=== PATIENT | male | born 1955 ===

== ENCOUNTER 2019-11-16 19:17 | Inpatient (IN) | payer OTHER ==
[2019-11-16 20:10] LABS: BASO % 0.5 % (0-2.0); EOS % 1.5 % (0-4.5); HEMATOCRIT 35.6 % (35.4-49); HEMOGLOBIN 12.1 GM/dl (11.7-16.9); LYMPH % 36.6 % (8-40); MCH 29.5 pg (25.7-33.7); MCHC 33.9 g/dl (32.0-35.9); MEAN PLT VOLUME 8.4 fl (7.5-11.1); NEUT % 51.4 % (42.8-82.8); PLATELET COUNT 275 K/MM3 (134-434); RBC 4.09 M/mm3 (4.00-5.60); RDW 12.7 % (11.9-15.9); WHITE BLOOD COUNT 6.8 K/mm3 (4.0-10.8)
[2019-11-16 20:18] LABS: ALBUMIN 3.8 g/dl (3.4-5.0); BILIRUBIN,TOTAL 0.4 mg/dl (0.2-1); CALCIUM 9.2 mg/dl (8.5-10); CREATININE 0.8 mg/dl (0.55-1.3); POTASSIUM 4.5 mmol/L (3.5-5.1); TOT PROT 7.1 g/dl (6.4-8.2)
[2019-11-16] MEDS ORDERED: SODIUM CHLORIDE 1,000 ML IV ONE (21:20)
--- NOTE | 2019-11-16 21:23 | PDOC ---
Documentation entered by Shaheen Pendleton SCRIBE, acting as scribe for Chaz Ovalle MD. Chaz Ovalle MD: This documentation has been prepared by the Helder seth Angel, SCRIBE, under my direction and personally reviewed by me in its entirety. I confirm that the documentation accurately reflects all work, treatment, procedures, and medical decision making performed by me. History of Present Illness - General Chief Complaint: Abnormal Lab Results (Outside) Stated Complaint: SENT FOR LOW NA Time Seen by Provider: 11/16/19 19:20 History Source: Patient, Family (Daughter in law) Exam Limitations: No Limitations - History of Present Illness Initial Comments: 11/16/19 20:14 The patient is a 64 year old male who comes in with chest pain for the past 5 days. The patient went to a clinic at [facility] for evaluation and found that he has a low sodium of 120. The patient has no chest pain here in the ED. The patient denies abdominal pain or any other complaints here in the ED. 11/16/19 21:22 Assessment and plan: This is a 64-year-old male who was sent in for evaluation and probable admission for hyponatremia. Patient said his sodium was 120 Labs were done here and sodium came back 127. Patient will be admitted for hyponatremia Past History - Medical History Allergies/Adverse Reactions: Allergies Allergy/AdvReac Type Severity Reaction Status Date / Time No Known Allergies Allergy Unverified 11/16/19 19:18 Home Medications: Ambulatory Orders Aspirin [Ecotrin] 81 mg PO DAILY 11/16/19 Atorvastatin Ca [Lipitor] 20 mg PO HS 11/16/19 Insulin Detemir [Levemir Flextouch] 1 dose SQ ASDIR 11/16/19 Metformin HCl [Glucophage] 1,000 mg PO BID 11/16/19 Review of Systems - Review of Systems Able to Perform ROS?: Yes Comments:: 11/16/19 20:14 General: No fevers or chills, no weakness, no weight loss HEENT: No change in vision. No sore throat. No ear pain CardioVascular: No chest pain or shortness of breath Respiratory:No cough, or wheezing. Gastrointestinal: no nausea, vomiting, diarrhea or constipation, No rectal bleeding Genitourinary: No dysuria, hematuria, or frequency Musculoskeletal: No joint or muscle pain or swelling Neurologic: No headache, vertigo, dizziness or loss of consciousness Psychiatric: nor depression Skin: No rashes or easy bruising Endocrine: no increased thirst or abnormal weight change Allergic: no skin or latex allergy All other systems reviewed and normal *Physical Exam - Physical Exam 11/16/19 20:14 General: Well-nourished well-developed individual, no acute distress HEENT: Throat: Normal, tonsils normal, no erythema or exudate Neck: Supple, no meningeal signs, no lymphadenopathy Eyes::Pupils equal reactive and round, extraocular motion intact Chest: Nontender to palpation Cardiac: S1-S2 normal, regular rate and rhythm, no murmurs rubs or gallops Respiratory: Lungs clear to auscultation bilateral Abdomen: Soft, nondistended, normal bowel sounds, nontender to palpation diffusely Extremities: Warm, dry, no cyanosis, clubbing, or edema Skin: No rashes Neuro: Alert and oriented x3, nonfocal exam, grossly intact, normal gait Psych: Normal mood and affect ED Treatment Course - LABORATORY CBC & Chemistry Diagram: 11/16/19 19:40 11/16/19 19:40 Discharge - Discharge Information Problems reviewed: Yes Clinical Impression/Diagnosis: Hyponatremia Condition: Stable - Admission Yes - Follow up/Referral - Patient Discharge Instructions - Post Discharge Activity
--- NOTE | 2019-11-16 21:55 | HP ---
CHIEF COMPLAINT: Abnormal Lab Results PCP: Not on Staff HISTORY OF PRESENT ILLNESS: This is a 64 y/o male with a PMHx of Diabetes Mellitus, HLD. Who presents to the ED for abnormal lab value. Patient reports being told by his PCP that his sodium level was 120 and he needed to be evaluated in the ED. Patient reports having Hyponatremia 2 years ago. Patient reports being seen at the [facility] for chest pain, now resolved. Patient denies dizziness, blurred vision. Patient denies fever, chills, cough, SOB, BRYANT, CP, palpitations, AP, N/V/D, melena, hematochezia, dysuria. 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) Allergies No Known Allergies Allergy (Unverified 11/16/19 19:18) HOME MEDICATIONS: Home Medications Medication Instructions Recorded Aspirin [Ecotrin] 81 mg PO DAILY 11/16/19 Atorvastatin Ca [Lipitor] 20 mg PO HS 11/16/19 Insulin Detemir [Levemir Flextouch] 1 dose SQ ASDIR 11/16/19 Metformin HCl [Glucophage] 1,000 mg PO BID 11/16/19 REVIEW OF SYSTEMS CONSTITUTIONAL: Absent: fever, chills, diaphoresis, generalized weakness, malaise, loss of appetite, weight change HEENT: Absent: rhinorrhea, nasal congestion, throat pain, throat swelling, difficulty swallowing, mouth swelling, ear pain, eye pain, visual changes CARDIOVASCULAR: Absent: chest pain, syncope, palpitations, irregular heart rate, lightheadedness, peripheral edema RESPIRATORY: Absent: cough, shortness of breath, dyspnea with exertion, orthopnea, wheezing, stridor, hemoptysis GASTROINTESTINAL: Absent: abdominal pain, abdominal distension, nausea, vomiting, diarrhea, constipation, melena, hematochezia GENITOURINARY: Absent: dysuria, frequency, urgency, hesitancy, hematuria, flank pain, genital pain MUSCULOSKELETAL: Absent: myalgia, arthralgia, joint swelling, back pain, neck pain SKIN: Absent: rash, itching, pallor HEMATOLOGIC/IMMUNOLOGIC: Absent: easy bleeding, easy bruising, lymphadenopathy, frequent infections ENDOCRINE: Absent: unexplained weight gain, unexplained weight loss, heat intolerance, cold intolerance NEUROLOGIC: Absent: headache, focal weakness or paresthesias, dizziness, unsteady gait, seizure, mental status changes, bladder or bowel incontinence PSYCHIATRIC: Absent: anxiety, depression, suicidal or homicidal ideation, hallucinations. PHYSICAL EXAMINATION Vital Signs - 24 hr 11/16/19 19:18 Temperature 98.3 F Pulse Rate 79 Respiratory 16 Rate Blood Pressure 125/78 O2 Sat by Pulse 100 Oximetry (%) GENERAL: Awake, alert, and fully oriented, in no acute distress. HEAD: Normal with no signs of trauma. EYES: Pupils equal, round and reactive to light, extraocular movements intact, sclera anicteric, conjunctiva clear. No lid lag. EARS, NOSE, THROAT: Ears normal, nares patent, oropharynx clear without exudates. Dry mucous membranes. NECK: Normal range of motion, supple without lymphadenopathy, JVD, or masses. LUNGS: Breath sounds equal, clear to auscultation bilaterally. No wheezes, and no crackles. No accessory muscle use. HEART: Regular rate and rhythm, normal S1 and S2 without murmur, rub or gallop. ABDOMEN: Soft, nontender, not distended, normoactive bowel sounds, no guarding, no rebound, no masses. No hepatomegaly or splenomegaly. MUSCULOSKELETAL: Normal range of motion at all joints. No bony deformities or tenderness. No CVA tenderness. UPPER EXTREMITIES: 2+ pulses, warm, well-perfused. No cyanosis. No clubbing. No peripheral edema. LOWER EXTREMITIES: 2+ pulses, warm, well-perfused. No calf tenderness. No peripheral edema. NEUROLOGICAL: Cranial nerves II-XII intact. Normal speech. Normal gait. PSYCHIATRIC: Cooperative. Good eye contact. Appropriate mood and affect. SKIN: Warm, dry, normal turgor, no rashes or lesions noted, normal capillary refill. Laboratory Results - last 24 hr 11/16/19 11/16/19 11/16/19 19:40 19:40 19:40 WBC 6.8 RBC 4.09 Hgb 12.1 Hct 35.6 MCV 87.0 MCH 29.5 MCHC 33.9 RDW 12.7 Plt Count 275 MPV 8.4 Absolute Neuts (auto) 3.5 Neutrophils % 51.4 Lymphocytes % 36.6 Monocytes % 10.0 Eosinophils % 1.5 Basophils % 0.5 Sodium 127 L Potassium 4.5 Chloride 93 L Carbon Dioxide 23 Anion Gap 11 BUN 13.0 Creatinine 0.8 Est GFR (CKD-EPI)AfAm 108.65 Est GFR (CKD-EPI)NonAf 93.74 Random Glucose 127 H Calcium 9.2 Total Bilirubin 0.4 AST 19 ALT 19 Alkaline Phosphatase 54 Creatine Kinase 86 Troponin I < 0.03 Total Protein 7.1 Albumin 3.8 ASSESSMENT/PLAN: This is a 64 y/o male with a PMhx of Diabetes Mellitus, HLD. Admitted to M/S for Acute Hyponatremia for further evaluation of their emergent condition. Plan: 1. Hyponatremia - Likely due to dehydration vs SIADH - Na Deficit 473.9 - NS bolus given in ED - Goal Na correction 6-8 meq/24hrs - Repeat CMP in am - Serum Osmo, Urine Osmo, Na Spot, Na lytes - Consider Renal consult if no improvement 2. Diabetes Mellitus - stable - BGMs - ISS - Hold Metformin 2/2 dehydration - Monitor CMP 3. HLD - stable - Continue Lipitor - Monitor LFTs 4. Laboratory Screening for Covid-19 - [employer] 0, low risk - COVID PCR-pending - Isolation Precautions FEN - PO fluids as tolerated - Na deficit 473, replete lytes prn - Diabetic Diet DVT ppx - OOB - SCDs - Lovenox SQ Dispo: Requires Inpatient Care Family Medical History Family History: Unremarkable Problem List - Problem (1) Hyponatremia Code(s): E87.1 - HYPO-OSMOLALITY AND HYPONATREMIA (2) Diabetes mellitus Code(s): E11.9 - TYPE 2 DIABETES MELLITUS WITHOUT COMPLICATIONS (3) HLD (hyperlipidemia) Code(s): E78.5 - HYPERLIPIDEMIA, UNSPECIFIED (4) Encounter for screening laboratory testing for COVID-19 virus Code(s): Z11.59 - ENCOUNTER FOR SCREENING FOR OTHER VIRAL DISEASES Visit type - Emergency Visit Emergency Visit: Yes ED Registration Date: 11/16/19 Care time: The patient presented to the Emergency Department on the above date and was hospitalized for further evaluation of their emergent condition. - New Patient This patient is new to me today: Yes Date on this admission: 11/16/19 - Critical Care Critical Care patient: No
[2019-11-16 23:43] VITALS: BMI 23.5
[2019-11-17] MEDS: SODIUM CHLORIDE 1,000 ML IV SCH (06:50)
[2019-11-17] MEDS: INSULIN SLIDING SCALE (NOVOLOG) 1 VIAL SQ SCH ×4 (06:58→21:21)
[2019-11-17 08:11] LABS: BASO % 1.3 % (0-2.0); EOS % 2.1 % (0-4.5); HEMATOCRIT 36.1 % (35.4-49); HEMOGLOBIN 11.8 GM/dl (11.7-16.9); LYMPH % 28.7 % (8-40); MCH 28.8 pg (25.7-33.7); MCHC 32.7 g/dl (32.0-35.9); MEAN PLT VOLUME 8.4 fl (7.5-11.1); NEUT % 58.9 % (42.8-82.8); PLATELET COUNT 236 K/MM3 (134-434); RDW 12.4 % (11.9-15.9); WHITE BLOOD COUNT 6.2 K/mm3 (4.0-10.8)
[2019-11-17 08:14] LABS: ALBUMIN 3.4 g/dl (3.4-5.0); BILIRUBIN,TOTAL 0.6 mg/dl (0.2-1); CREATININE 0.8 mg/dl (0.55-1.3); MAGNESIUM 1.7 mg/dL (1.8-2.4); PHOSPHOROUS 2.8 mg/dl (2.5-4.9); POTASSIUM 4.4 mmol/L (3.5-5.1); TOT PROT 6.2 g/dl (6.4-8.2)
[2019-11-17] MEDS ORDERED: MAGNESIUM SULF 50% (8.12 MEQ/2 ML-1 GM VIAL) IVPB ONE (09:26)
[2019-11-17] MEDS ORDERED: MAGNESIUM SULFATE IN WATER 2 GM/50 ML IVPB IVPB ONE (10:00)
[2019-11-17] MEDS: ENOXAPARIN NA (PORCINE) 40 MG/0.4 ML DISP.SYRIN SQ SCH (10:02)
[2019-11-17] MEDS: ASPIRIN COATED 81 MG TABLET.EC PO SCH (10:02)
--- NOTE | 2019-11-17 10:20 | EKG ---
Test Reason : Blood Pressure : / mmHG Vent. Rate : 072 BPM Atrial Rate : 072 BPM P-R Int : 176 ms QRS Dur : 084 ms QT Int : 388 ms P-R-T Axes : 063 073 063 degrees QTc Int : 424 ms NORMAL SINUS RHYTHM NORMAL ECG NO PREVIOUS ECGS AVAILABLE Confirmed by NANCIE TERRELL MD ([id number]) on 11/17/2019 10:19:49 AM Referred By: DR JEAN Confirmed By:NANCIE TERRELL MD
--- NOTE | 2019-11-17 14:20 | PN ---
Physical Exam: SUBJECTIVE: Patient seen and examined oob to chair eating lunch. States he feels well. About a week ago he experienced upper left chest pain. He went to see his PCP on 11/14 and was told his heart was OK. Yesterday he was called by the PCP's office and told to go to local ED because his sodium was 120. Patient has been feeling weak for a few days, improved today. He denies unsteadiness of gait, mental confusion. Confirmed these details with patient's son Godfrey. OBJECTIVE: Vital Signs Period Temp Pulse Resp BP Sys/Owusu Pulse Ox Last 24 Hr 97.9 F-98.3 F 76-81 16-20 125-152/71-83 100-100 GENERAL: The patient is awake, alert, and fully oriented, in no acute distress. LUNGS: Breath sounds equal, clear to auscultation bilaterally, no wheezes, no crackles, no accessory muscle use. HEART: Regular rate and rhythm, S1, S2 ABDOMEN: Soft, nontender, nondistended EXTREMITIES: 2+ pulses, warm, well-perfused, no edema. NEUROLOGICAL: Cranial nerves II through XII grossly intact. Normal speech Laboratory Results - last 24 hr 11/16/19 11/16/19 11/16/19 19:40 19:40 19:40 WBC 6.8 RBC 4.09 Hgb 12.1 Hct 35.6 MCV 87.0 MCH 29.5 MCHC 33.9 RDW 12.7 Plt Count 275 MPV 8.4 Absolute Neuts (auto) 3.5 Neutrophils % 51.4 Lymphocytes % 36.6 Monocytes % 10.0 Eosinophils % 1.5 Basophils % 0.5 Sodium 127 L Potassium 4.5 Chloride 93 L Carbon Dioxide 23 Anion Gap 11 BUN 13.0 Creatinine 0.8 Est GFR (CKD-EPI)AfAm 108.65 Est GFR (CKD-EPI)NonAf 93.74 POC Glucometer Random Glucose 127 H Calcium 9.2 Phosphorus Magnesium Total Bilirubin 0.4 AST 19 ALT 19 Alkaline Phosphatase 54 Creatine Kinase 86 Troponin I < 0.03 Total Protein 7.1 Albumin 3.8 Ur Random Sodium Ur Random Potassium Ur Random Chloride 11/16/19 11/16/19 11/17/19 19:40 22:00 06:53 WBC RBC Hgb Hct MCV MCH MCHC RDW Plt Count MPV Absolute Neuts (auto) Neutrophils % Lymphocytes % Monocytes % Eosinophils % Basophils % Sodium Potassium Chloride Carbon Dioxide Anion Gap BUN Creatinine Est GFR (CKD-EPI)AfAm Est GFR (CKD-EPI)NonAf POC Glucometer 152 Random Glucose Calcium Phosphorus Magnesium Total Bilirubin AST ALT Alkaline Phosphatase Creatine Kinase Troponin I Total Protein Albumin Ur Random Sodium 18 L Cancelled Ur Random Potassium 59.9 Cancelled Ur Random Chloride 50 L Cancelled 11/17/19 11/17/19 11/17/19 07:24 07:24 11:17 WBC 6.2 RBC 4.10 Hgb 11.8 Hct 36.1 MCV 88.0 MCH 28.8 MCHC 32.7 RDW 12.4 Plt Count 236 MPV 8.4 Absolute Neuts (auto) 3.6 Neutrophils % 58.9 Lymphocytes % 28.7 D Monocytes % 9.0 Eosinophils % 2.1 Basophils % 1.3 Sodium 131 L Potassium 4.4 Chloride 99 Carbon Dioxide 23 Anion Gap 9 BUN 10.0 Creatinine 0.8 Est GFR (CKD-EPI)AfAm 108.65 Est GFR (CKD-EPI)NonAf 93.74 POC Glucometer 166 Random Glucose 144 H Calcium 9.0 Phosphorus 2.8 Magnesium 1.7 L Total Bilirubin 0.6 AST 15 ALT 16 Alkaline Phosphatase 49 Creatine Kinase Troponin I Total Protein 6.2 L Albumin 3.4 Ur Random Sodium Ur Random Potassium Ur Random Chloride Current Medications Generic Name Dose Route Start Last Admin Trade Name Freq PRN Reason Stop Dose Admin Aspirin 81 mg 11/17/19 10:00 11/17/19 10:02 Ecotrin - PO 81 mg DAILY ASTRID Administration Atorvastatin Calcium 20 mg 11/17/19 22:00 Lipitor - PO HS ASTRID Enoxaparin Sodium 40 mg 11/17/19 10:00 11/17/19 10:02 Lovenox - SQ 40 mg DAILY ASTRID Administration Sodium Chloride 1,000 mls @ 42 mls/hr 11/17/19 06:45 11/17/19 06:50 Normal Saline - IV 42 mls/hr ASDIR ASTRID Administration Insulin Aspart 0 vial 11/17/19 07:00 11/17/19 11:27 Novolog Vial Sliding Scale - SQ 2 unit ACHS ASTRID Administration Protocol PCP: Dr. Yousuf Irving, [facility] [phone] ASSESSMENT/PLAN 64 year-old male with a PMH significant for HLD and Type II IDDM. Admitted for hyponatremia. Hyponatremia --NS x 1L in ED, gentle fluids overnight, Na improved 127-->131 --continue gentle fluids Chest pain --report of upper left sided chest pain one week ago, and reportedly worked up by PCP on 11/14; unable to reach PCP's office but was able to access the patient's My Chart; no documented h/o CAD, no troponins drawn, no indication ECG done --will get serial troponins, ECG, telemetry monitoring --continue ASA, statin h/o DVT --history provided by son, patient syncopized in 2012 and was hospitalized at [facility], diagnosed with blood clot in leg, was on blood thinners x 3 months, no longer on a/c --continue ASA Type II IDDM --HgbA1C 6.0 as of 11/15/19 per [facility] records --Levemir 2U qhs --Novolog sliding scale coverage FEN Fluids: NS@42mL/hr Electrolytes: replete as indicated Nutrition: low sodium, diabetic DVT prophylaxis: subq lovenox Physical therapy Dispo: continues to require inpatient care. Full code. Visit type - Emergency Visit Emergency Visit: Yes ED Registration Date: 11/16/19 Care time: The patient presented to the Emergency Department on the above date and was hospitalized for further evaluation of their emergent condition. - New Patient This patient is new to me today: Yes Date on this admission: 11/17/19 - Critical Care Critical Care patient: No - Discharge Referral Referred to [facility].C.: No
[2019-11-17] MEDS ORDERED: INSULIN DETEMIR SQ SCH (22:00)
[2019-11-17] MEDS ORDERED: INSULIN (LEVEMIR) 100 UNITS/ML UNITS SQ SCH (22:00)
[2019-11-17] MEDS ORDERED: ATORVASTATIN CA 20 MG TABLET (FP) PO SCH (22:00)
[2019-11-18] MEDS: INSULIN SLIDING SCALE (NOVOLOG) 1 VIAL SQ SCH ×2 (06:18→11:48)
[2019-11-18 08:23] LABS: BASO % 0.7 % (0-2.0); EOS % 2.7 % (0-4.5); HEMATOCRIT 35.8 % (35.4-49); HEMOGLOBIN 11.8 GM/dl (11.7-16.9); LYMPH % 35.9 % (8-40); MCH 28.9 pg (25.7-33.7); MCHC 32.9 g/dl (32.0-35.9); MEAN CELL VOLUME 87.7 fl (80-96); MEAN PLT VOLUME 8.6 fl (7.5-11.1); NEUT % 51.7 % (42.8-82.8); PLATELET COUNT 246 K/MM3 (134-434); RBC 4.09 M/mm3 (4.00-5.60); RDW 12.3 % (11.9-15.9); WHITE BLOOD COUNT 6.4 K/mm3 (4.0-10.8)
[2019-11-18 08:34] LABS: ALBUMIN 3.4 g/dl (3.4-5.0); BILIRUBIN,TOTAL 0.6 mg/dl (0.2-1); CALCIUM 9.4 mg/dl (8.5-10); CREATININE 0.9 mg/dl (0.55-1.3); MAGNESIUM 1.7 mg/dL (1.8-2.4); POTASSIUM 4.7 mmol/L (3.5-5.1); TOT PROT 6.3 g/dl (6.4-8.2)
[2019-11-18] MEDS ORDERED: MAGNESIUM SULF 50% (8.12 MEQ/2 ML-1 GM VIAL) IVPB ONE (08:51)
[2019-11-18 09:12] VITALS: BP 141/73; PULSE 85; TEMP 98.8
[2019-11-18] MEDS: ENOXAPARIN NA (PORCINE) 40 MG/0.4 ML DISP.SYRIN SQ SCH (09:59)
[2019-11-18] MEDS: ASPIRIN COATED 81 MG TABLET.EC PO SCH (09:59)
[2019-11-18] MEDS: SODIUM CHLORIDE 1,000 ML IV SCH (09:59)
--- NOTE | 2019-11-18 10:04 | DS ---
Physical Exam: SUBJECTIVE: Patient seen and examined at bedside, denies cp, sob, palpitations, abdominal pain, N/V/D or urinary symptoms. OBJECTIVE: Vital Signs Period Temp Pulse Resp BP Sys/Owusu Pulse Ox Last 24 Hr 97.7 F-98.8 F 68-85 18-20 126-141/57-74 97-100 PHYSICAL EXAM GENERAL: The patient is awake, alert, and fully oriented, in no acute distress. HEAD: Normal with no signs of trauma. EYES: PERRL, extraocular movements intact, sclera anicteric, conjunctiva clear. ENT: Ears normal, nares patent, oropharynx clear without exudates, moist mucous membranes. NECK: Trachea midline, full range of motion, supple. LUNGS: Breath sounds equal, clear to auscultation bilaterally, no wheezes, no crackles, no accessory muscle use. HEART: Regular rate and rhythm, S1, S2 without murmur, rub or gallop. ABDOMEN: Soft, nontender, nondistended, normoactive bowel sounds, no guarding, no rebound, no hepatosplenomegaly, no masses. EXTREMITIES: 2+ pulses, warm, well-perfused, no edema. NEUROLOGICAL: Cranial nerves II through XII grossly intact. Normal speech, gait not observed. PSYCH: Normal mood, normal affect. SKIN: Warm, dry, normal turgor, no rashes or lesions noted. LABS Laboratory Results - last 24 hr 11/17/19 11/17/19 11/17/19 07:24 11:17 14:22 WBC RBC Hgb Hct MCV MCH MCHC RDW Plt Count MPV Absolute Neuts (auto) Neutrophils % Lymphocytes % Monocytes % Eosinophils % Basophils % Sodium Potassium Chloride Carbon Dioxide Anion Gap BUN Creatinine Est GFR (CKD-EPI)AfAm Est GFR (CKD-EPI)NonAf POC Glucometer 166 Random Glucose Serum Osmolality 280 Calcium Magnesium Total Bilirubin AST ALT Alkaline Phosphatase Troponin I < 0.03 Total Protein Albumin 11/17/19 11/17/19 11/17/19 15:00 16:25 21:18 WBC RBC Hgb Hct MCV MCH MCHC RDW Plt Count MPV Absolute Neuts (auto) Neutrophils % Lymphocytes % Monocytes % Eosinophils % Basophils % Sodium Potassium Chloride Carbon Dioxide Anion Gap BUN Creatinine Est GFR (CKD-EPI)AfAm Est GFR (CKD-EPI)NonAf POC Glucometer 170 204 Random Glucose Serum Osmolality Calcium Magnesium Total Bilirubin AST ALT Alkaline Phosphatase Troponin I < 0.03 Total Protein Albumin 11/18/19 11/18/19 11/18/19 05:33 07:10 07:10 WBC 6.4 RBC 4.09 Hgb 11.8 Hct 35.8 MCV 87.7 MCH 28.9 MCHC 32.9 RDW 12.3 Plt Count 246 MPV 8.6 Absolute Neuts (auto) 3.3 Neutrophils % 51.7 Lymphocytes % 35.9 D Monocytes % 9.0 Eosinophils % 2.7 Basophils % 0.7 Sodium 133 L Potassium 4.7 Chloride 100 Carbon Dioxide 26 Anion Gap 7 L BUN 12.0 Creatinine 0.9 Est GFR (CKD-EPI)AfAm 103.51 Est GFR (CKD-EPI)NonAf 89.31 POC Glucometer 156 Random Glucose 161 H Serum Osmolality Calcium 9.4 Magnesium 1.7 L Total Bilirubin 0.6 AST 14 L ALT 16 Alkaline Phosphatase 52 Troponin I Total Protein 6.3 L Albumin 3.4 CxR: No acute lung pathology HOSPITAL COURSE: Date of Admission:11/16/19 Date of Discharge: 11/18/19 This is a 64 year-old male with a PMH significant for HLD and Type II IDDM., who was referred to ER for evaluation of hyponatremia. Patient reports being told by his PCP that his sodium level was 120 and he needed to be evaluated in the ED. Patient reports having Hyponatremia 2 years ago. Patient reports being seen at the [facility] for chest pain, now resolved. Patient denies dizziness, blurred vision. Patient denies fever, chills, cough, SOB, BRYANT, CP, palpitations, AP, N/V/D, melena, hematochezia, dysuria. Admitted for hyponatremia, Na level of 127. *Hyponatremia- 127 in ER - s/p NS IV hydration, Na level improved 127>131>133 - remains asymptomatic - Serum Osmolality 280,, Urine Na 18, - hyponatremia likely due to dehydration - rec out f/u on Na level with PMD - encourage PO fluid intake *Chest pain- resolved - EKG: SR - Trop negative x3, - telemetry monitoring reviewed, no cardiac events noted -checked fasting lipids - WNL - will resume on home dose ASA and Satin * Hx of DVT -history provided by son, patient syncopized in 2012 and was hospitalized at [facility], diagnosed with blood clot in leg, was on blood thinners x 3 months, no longer on a/c -continue ASA *Type II IDDM -HgbA1C 6.0 as of 11/15/19 per [facility] records -Levemir 2U qhs -Novolog sliding scale coverage Minutes to complete discharge: 35 Discharge Summary Problems reviewed: Yes Reason For Visit: SENT FOR LOW NA Current Active Problems Diabetes mellitus (Acute) Encounter for screening laboratory testing for COVID-19 virus (Acute) HLD (hyperlipidemia) (Acute) Hyponatremia (Acute) Condition: Stable - Instructions Diet, Activity, Other Instructions: Increase fluid intake Outpatient followup on Sodium and magnesium levels. Followup with primary care provider Dr. Yousuf Irving, [facility] [phone] in a week. Disposition: HOME - Home Medications Comprehensive Discharge Medication List: Ambulatory Orders Aspirin [Ecotrin] 81 mg PO DAILY 11/16/19 Atorvastatin Ca [Lipitor] 20 mg PO HS 11/16/19 Insulin Detemir [Levemir Flextouch] 1 dose SQ ASDIR 11/16/19 Metformin HCl [Glucophage] 1,000 mg PO BID 11/16/19 This patient is new to me today: Yes Date on this admission: 11/18/19 Emergency Visit: Yes ED Registration Date: 11/16/19 Care time: The patient presented to the Emergency Department on the above date and was hospitalized for further evaluation of their emergent condition. Critical Care patient: No - Discharge Referral Referred to [facility] Med [facility].: No
[2019-11-18 11:05] LABS: CHOLESTEROL 113 mg/dl (50-200); HDL CHOLESTEROL 59 mg/dl (40-60)
[2019-11-18 11:06] LABS: LDL CHOLESTEROL (ONLY DFH) 49 mg/dl (5-100); TRIGLYCERIDES 27 mg/dl (0-150)
--- NOTE | 2019-11-20 10:19 | EKG ---
Test Reason : Blood Pressure : / mmHG Vent. Rate : 077 BPM Atrial Rate : 077 BPM P-R Int : 180 ms QRS Dur : 086 ms QT Int : 364 ms P-R-T Axes : 054 063 056 degrees QTc Int : 411 ms NORMAL SINUS RHYTHM NORMAL ECG WHEN COMPARED WITH ECG OF 16-NOV-2019 19:57, NO SIGNIFICANT CHANGE WAS FOUND Confirmed by Misael Sarabia ([id number]) on 11/20/2019 10:18:51 AM Referred By: PRASHANTH Confirmed By:Misael Sarabia
== END 2019-11-18 12:30 | disposition home or self-care (01) | DRG 425 ==
LOC: FER 19:17 → FM/S 22:03
PROVIDERS: ADMIT Internal Medicine; ATTEND Nurse Practitioner Acute Care
DX: E87.1 Hypo-osmolality and hyponatremia (principal); E11.9 Type 2 diabetes mellitus without complications; E78.5 Hyperlipidemia, unspecified; R07.9 Chest pain, unspecified
CPT/HCPCS: 36415; 71045-TC-FY; 80053; 80061; 82436; 82550; 82962; 83735; 83930; 84100; 84133; 84300; 84484; 85025; 93005; 97116-GP; 97161-GP; 99285-25; U0003